=== PATIENT | female | born 1940 | race African-American/Black ===

== ENCOUNTER 2017-04-30 10:52 | Day surgery (SDC) | payer MEDICARE ==
[2017-04-30 12:13] LABS: Iron 12 ug/dL (50-170)
[2017-04-30 12:16] LABS: Hematocrit 22.5 % (36.0-47.0); Hypochromia MODERATE=16-30 cells (100X) (0-5/hpf); Mean Platelet Volume 6.9 fL (7.4-10.4); Microcytosis SLIGHT = 6-15 cells (100X) (0-5/hpf); Neutrophil 77 % (42-75); Polychromasia SLIGHT = 2-3 cells (100X) (0-2/hpf); Red Blood Cell (RBC) Count 2.97 mill/uL (4.20-5.40); White Blood Cell (WBC) Count 8.2 thou/uL (4.8-10.8)
[2017-04-30 18:07] VITALS: BP 160/77; TEMP 99
== END 2017-04-30 18:23 | disposition home or self-care (01) ==
LOC: ONC/OP 10:52
PROVIDERS: ATTEND Family Medicine
PROC: 30233N1 Transfusion of Nonautologous Red Blood Cells into Peripheral Vein, Percutaneous Approach (ICD-10-PCS; principal; 2017-04-30)
DX: D50.9 Iron deficiency anemia, unspecified (principal)
CPT/HCPCS: 36415; 36430; 82728; 83540; 83550; 85007; 85027; 85060; 86850; 86900; 86901; P9016

== ENCOUNTER 2019-03-07 11:56 | Outpatient (CLI) | payer MEDICARE, OTHER ==
--- NOTE | 2019-03-07 12:59 | MMO ---
Bilateral MAMMO Bilat Screen [facility]. CLINICAL HISTORY: Patient is 78 years old and is seen for screening. The patient has no family history of breast cancer. The patient has no personal history of cancer. VIEWS: The views performed were: bilateral craniocaudal with tomosynthesis and bilateral mediolateral oblique with tomosynthesis. FILMS COMPARED: The present examination has been compared to prior imaging studies performed at [facility] on 12/11/2008 and 09/16/2011. MAMMOGRAM FINDINGS: There are scattered fibroglandular densities. There are no suspicious masses, suspicious calcifications, or new areas of architectural distortion. IMPRESSION: THERE IS NO MAMMOGRAPHIC EVIDENCE OF MALIGNANCY. A ROUTINE FOLLOW-UP MAMMOGRAM IN 1 YEAR IS RECOMMENDED. THE RESULTS OF THIS EXAM WERE SENT TO THE PATIENT. ACR BI-RADS Category 1 - Negative MAMMOGRAPHY NOTE: 1. A negative mammogram report should not delay a biopsy if a dominant of clinically suspicious mass is present. 2. Approximately 10% to 15% of breast cancers are not detected by mammography. 3. Adenosis and dense breasts may obscure an underlying neoplasm. Reported by: KAT CALDERON MD Electonically Signed: [id number]
== END 2019-03-07 11:57 | disposition home or self-care (01) ==
LOC: BICMAMMO 11:56
PROVIDERS: ATTEND Student in an Organized Health Care Education/Training Program
DX: Z12.31 Encounter for screening mammogram for malignant neoplasm of breast (principal)
CPT/HCPCS: 77063; 77067

== ENCOUNTER 2019-03-17 11:45 | Emergency (ER) | payer MEDICARE, OTHER ==
[2019-03-17] MEDS ORDERED: Ketorolac Tromethamine 30 MG/ML VIAL ONE (12:43)
== END 2019-03-17 12:55 | disposition home or self-care (01) ==
LOC: ERS 11:45
DX: M10.9 Gout, unspecified (principal); E03.9 Hypothyroidism, unspecified; E78.5 Hyperlipidemia, unspecified; E11.9 Type 2 diabetes mellitus without complications; I10 Essential (primary) hypertension; M19.90 Unspecified osteoarthritis, unspecified site
CPT/HCPCS: 96372; 99283; J1885

== ENCOUNTER 2023-06-02 16:10 | Inpatient (IN) | payer MEDICARE, MEDICAID ==
[2023-06-02 17:18] LABS: #Basophils 0.1 thou/uL (0.0-0.2); #Eosinphils 0.1 thou/uL (0.0-0.7); #Monocytes 0.6 thou/uL (0.11-0.59); #Neutrophils 5.9 thou/uL (1.40-6.50); %Basophils 0.8 % (0.0-1.0); %Eosinophils 1.6 % (0.0-10.0); %Lymphocytes 15.6 % (21.0-51.0); %Monocytes 7.3 % (0.0-10.0); %Neutrophils 74.6 % (42.0-75.0); Hematocrit 35.9 % (36.0-47.0); Hemoglobin 11.5 g/dL (12.0-16.0); Mean Corpuscular Hemoglobin 32.1 pg (27.0-31.0); Mean Corpuscular Volume 100.3 fl (78.0-98.0); Mean Platelet Volume 9.2 fL (7.4-10.4); Platelet Count 311 10x3/uL (130-400); RBC Distribution Width 15.5 % (11.5-14.5); Red Blood Cell (RBC) Count 3.58 mill/uL (4.20-5.40)
[2023-06-02 17:31] LABS: INR-International Normal Ratio 1.1; PTT 31.8 sec (22.9-36.1); Prothrombin Time 14.4 sec (12.0-14.7)
[2023-06-02 17:42] LABS: ALT (SGPT) Less than 7 U/L (8-55); AST (SGOT) 13 U/L (5-34); Albumin 3.5 g/dL (3.4-4.8); Alkaline Phosphatase 88 U/L (40-110); Anion Gap 13 mmol/L (10-20); BUN (Urea Nitrogen) 16 mg/dL (9.8-20.1); Bilirubin, Total 0.4 mg/dL (0.2-1.2); Calc. Creatinine Clearance 0 mL/min (70-130); Calcium 8.6 mg/dL (7.8-10.44); Carbon Dioxide 22 mmol/L (23-31); Chloride 114 mmol/L (98-107); Estimated GFR 14; Globulin 3.4 g/dL (2.4-3.5); Glucose 135 mg/dL (83-110); Lipase 34 U/L (8-78); Potassium 3.9 mmol/L (3.5-5.1); Protein, Total 6.9 g/dL (5.8-8.1); Sodium 145 mmol/L (136-145)
[2023-06-02 17:48] LABS: Troponin I Less than 0.010 ng/mL (< 0.028)
[2023-06-02] MEDS ORDERED: Ondansetron PF 4 MG/2 ML Vial ONE (21:51)
[2023-06-03] MEDS ORDERED: Ondansetron PF 4 MG/2 ML Vial IVP PRN (00:36)
[2023-06-03] MEDS ORDERED: Ondansetron ODT 4 MG TAB PO PRN (00:36)
[2023-06-03 00:39] LABS: Troponin I Less than 0.010 ng/mL (< 0.028)
[2023-06-03 01:08] VITALS: BMI 27.6
[2023-06-03] MEDS ORDERED: Ziprasidone 20 MG VIAL IM SCH ×3 (02:00→23:45)
[2023-06-03] MEDS ORDERED: Sterile Water 10 ML ONE (02:01)
[2023-06-03] MEDS: Sterile Water 10 ML VIAL FS PRN ×2 (02:07→20:25)
[2023-06-03] MEDS ORDERED: Haloperidol Lactate 5 MG/ML VIAL SLOW IVP SCH (03:00)
[2023-06-03 03:50] LABS: #Monocytes 0.5 thou/uL (0.11-0.59); #Neutrophils 5.1 thou/uL (1.40-6.50); %Basophils 0.4 % (0.0-1.0); %Eosinophils 0.4 % (0.0-10.0); %Lymphocytes 20.3 % (21.0-51.0); %Neutrophils 71.8 % (42.0-75.0); Hematocrit 37.6 % (36.0-47.0); Hemoglobin 11.9 g/dL (12.0-16.0); Mean Corpuscular HGB CONC 31.6 g/dL (32.0-36.0); Mean Corpuscular Hemoglobin 31.7 pg (27.0-31.0); Mean Corpuscular Volume 100.3 fl (78.0-98.0); Mean Platelet Volume 9.2 fL (7.4-10.4); Platelet Count 299 10x3/uL (130-400); RBC Distribution Width 15.6 % (11.5-14.5); Red Blood Cell (RBC) Count 3.75 mill/uL (4.20-5.40); White Blood Cell (WBC) Count 7.1 10x3/uL (4.8-10.8)
[2023-06-03 04:39] LABS: Anion Gap 15 mmol/L (10-20); BUN (Urea Nitrogen) 14 mg/dL (9.8-20.1); Calc. Creatinine Clearance 17 mL/min (70-130); Calcium 9.2 mg/dL (7.8-10.44); Carbon Dioxide 21 mmol/L (23-31); Chloride 112 mmol/L (98-107); Estimated GFR 17; Glucose 110 mg/dL (83-110); Sodium 144 mmol/L (136-145)
[2023-06-03 04:44] LABS: Troponin I Less than 0.010 ng/mL (< 0.028)
[2023-06-03] MEDS ORDERED: Levothyroxine 150 MCG TAB PO SCH (06:00)
[2023-06-03] MEDS ORDERED: Levothyroxine Sodium 100 MCG TAB PO SCH (06:00)
[2023-06-03] MEDS: Amlodipine 10 MG TAB PO SCH ×2 (08:01→11:13)
[2023-06-03] MEDS: Aspirin 81 mg Enteric Coated Tablet PO SCH ×2 (08:01→11:23)
[2023-06-03] MEDS: Famotidine 20 MG TAB PO SCH ×2 (08:01→11:23)
[2023-06-03] MEDS: Carvedilol 6.25 MG TAB PO SCH ×4 (08:01→18:10)
[2023-06-03] MEDS: Rosuvastatin 10 MG TAB PO SCH ×2 (08:01→11:24)
[2023-06-03] MEDS: Furosemide 20 MG TAB PO SCH ×2 (08:01→11:23)
[2023-06-03] MEDS: Ferrous Sulfate 325 MG TAB PO SCH ×2 (08:01→11:13)
[2023-06-03 12:59] LABS: Acetaminophen Less than 10 mcg/mL (10.0-30.0); Alcohol Less than 10.0 mg/dL (Less than 10); Salicylate Less than 8.0 mg/dL (15.0-30.0)
[2023-06-03 16:48] LABS: Bilirubin Negative (Negative); Blood, Urine Negative (Negative); Clarity Clear (Clear); Glucose, Urine (Dipstick) Normal (Negative); Ketone, Urine Negative (Negative); Leukocyte Negative Leu/uL (Negative); Nitrite Negative (Negative); Protein, Urine (Dipstick) 10 mg/dL (Neg-Trace); RBC/HPF 0-3 HPF (0-3); Specific Gravity, Urine 1.008 (1.002-1.036); Squamous Epithelial 0-3 HPF (0-3); Urobilinogen Normal mg/dL (Less than 2); WBC/HPF 0-3 HPF (0-3)
[2023-06-03 16:59] LABS: Bacteria/HPF 1+ HPF (None Seen)
[2023-06-03 17:00] LABS: Amphetamine Not Detected (NotDetected); Barbiturates Screen Not Detected (NotDetected); Benzodiazepine Screen Not Detected (NotDetected); Cocaine Metabolite Screen Not Detected (NotDetected); Methadone Not Detected (NotDetected); Methamphetamine Not Detected (NotDetected); Opiate Screen Not Detected (NotDetected); Oxycodone Screen Not Detected (NotDetected); Phencyclidine (PCP) Not Detected (NotDetected); THC/Cannabinoid Screen Not Detected (NotDetected); Tricyclic Screen Not Detected (NotDetected)
[2023-06-03] MEDS: Latanoprost 0.005% Ophth Soln 2.5 ml Bottle EA EYE SCH (20:31)
[2023-06-03] MEDS: Lisinopril 20 MG TAB PO SCH (20:32)
[2023-06-04] MEDS: Sterile Water 10 ML VIAL FS PRN (01:17)
[2023-06-04] MEDS: Levothyroxine Sodium 100 MCG TAB PO SCH (05:27)
[2023-06-04] MEDS: Carvedilol 6.25 MG TAB PO SCH ×2 (09:37→18:10)
[2023-06-04] MEDS: Furosemide 20 MG TAB PO SCH (09:42)
[2023-06-04] MEDS: Amlodipine 10 MG TAB PO SCH (09:42)
[2023-06-04] MEDS: Aspirin 81 mg Enteric Coated Tablet PO SCH (09:44)
[2023-06-04] MEDS: Rosuvastatin 10 MG TAB PO SCH (09:45)
[2023-06-04] MEDS: Famotidine 20 MG TAB PO SCH (09:45)
[2023-06-04 10:45] LABS: #Basophils 0.1 thou/uL (0.0-0.2); #Eosinphils 0.1 thou/uL (0.0-0.7); #Monocytes 0.5 thou/uL (0.11-0.59); #Neutrophils 3.8 thou/uL (1.40-6.50); %Basophils 0.8 % (0.0-1.0); %Eosinophils 2.3 % (0.0-10.0); %Lymphocytes 26.2 % (21.0-51.0); %Monocytes 8.1 % (0.0-10.0); %Neutrophils 62.4 % (42.0-75.0); Hematocrit 38.9 % (36.0-47.0); Hemoglobin 12.8 g/dL (12.0-16.0); Mean Corpuscular HGB CONC 32.9 g/dL (32.0-36.0); Mean Corpuscular Hemoglobin 32.2 pg (27.0-31.0); Mean Corpuscular Volume 97.7 fl (78.0-98.0); Mean Platelet Volume 9.1 fL (7.4-10.4); Platelet Count 366 10x3/uL (130-400); Red Blood Cell (RBC) Count 3.98 mill/uL (4.20-5.40)
[2023-06-04] MEDS ORDERED: QUEtiapine 25 MG TAB PO SCH (11:00)
[2023-06-04 11:12] LABS: ALT (SGPT) Less than 7 U/L (8-55); AST (SGOT) 18 U/L (5-34); Albumin 3.6 g/dL (3.4-4.8); Alkaline Phosphatase 94 U/L (40-110); Anion Gap 16 mmol/L (10-20); BUN (Urea Nitrogen) 12 mg/dL (9.8-20.1); Bilirubin, Total 0.5 mg/dL (0.2-1.2); Calc. Creatinine Clearance 18 mL/min (70-130); Calcium 9.4 mg/dL (7.8-10.44); Carbon Dioxide 22 mmol/L (23-31); Chloride 109 mmol/L (98-107); Estimated GFR 18; Globulin 3.9 g/dL (2.4-3.5); Glucose 103 mg/dL (83-110); Potassium 3.9 mmol/L (3.5-5.1); Protein, Total 7.5 g/dL (5.8-8.1); Sodium 143 mmol/L (136-145)
[2023-06-04] MEDS ORDERED: Ziprasidone 20 MG VIAL IM SCH ×2 (20:00→22:15)
[2023-06-04] MEDS: Lisinopril 20 MG TAB PO SCH (21:32)
[2023-06-04] MEDS: Latanoprost 0.005% Ophth Soln 2.5 ml Bottle EA EYE SCH (21:34)
[2023-06-04] MEDS: QUEtiapine 25 MG TAB PO SCH (21:34)
[2023-06-05] MEDS: Levothyroxine Sodium 100 MCG TAB PO SCH (05:33)
[2023-06-05] MEDS: Furosemide 20 MG TAB PO SCH (11:26)
[2023-06-05] MEDS: Amlodipine 10 MG TAB PO SCH (11:26)
[2023-06-05] MEDS: Aspirin 81 mg Enteric Coated Tablet PO SCH (11:26)
[2023-06-05] MEDS: Carvedilol 6.25 MG TAB PO SCH ×2 (11:26→17:56)
[2023-06-05] MEDS: Ferrous Sulfate 325 MG TAB PO SCH (11:27)
[2023-06-05] MEDS: Famotidine 20 MG TAB PO SCH (11:27)
[2023-06-05] MEDS: QUEtiapine 25 MG TAB PO SCH ×2 (11:27→11:53)
[2023-06-05] MEDS: Rosuvastatin 10 MG TAB PO SCH (11:27)
[2023-06-05] MEDS ORDERED: QUEtiapine 25 MG TAB PO SCH ×3 (14:45→18:00)
[2023-06-05] MEDS: Latanoprost 0.005% Ophth Soln 2.5 ml Bottle EA EYE SCH (21:00)
[2023-06-05] MEDS: Lisinopril 20 MG TAB PO SCH (21:34)
[2023-06-06 04:54] LABS: #Basophils 0.1 thou/uL (0.0-0.2); #Eosinphils 0.2 thou/uL (0.0-0.7); #Monocytes 0.6 thou/uL (0.11-0.59); #Neutrophils 2.9 thou/uL (1.40-6.50); %Basophils 0.9 % (0.0-1.0); %Eosinophils 2.6 % (0.0-10.0); %Lymphocytes 36.2 % (21.0-51.0); %Monocytes 10.3 % (0.0-10.0); %Neutrophils 49.8 % (42.0-75.0); Hematocrit 40.9 % (36.0-47.0); Hemoglobin 13.2 g/dL (12.0-16.0); Mean Corpuscular HGB CONC 32.3 g/dL (32.0-36.0); Mean Corpuscular Hemoglobin 31.4 pg (27.0-31.0); Mean Corpuscular Volume 97.4 fl (78.0-98.0); Mean Platelet Volume 10.1 fL (7.4-10.4); Platelet Count 289 10x3/uL (130-400); RBC Distribution Width 15.2 % (11.5-14.5); White Blood Cell (WBC) Count 5.7 10x3/uL (4.8-10.8)
[2023-06-06] MEDS: Levothyroxine Sodium 100 MCG TAB PO SCH (06:03)
[2023-06-06 09:45] LABS: ALT (SGPT) 7 U/L (8-55); AST (SGOT) 22 U/L (5-34); Albumin 3.3 g/dL (3.4-4.8); Alkaline Phosphatase 88 U/L (40-110); Anion Gap 17 mmol/L (10-20); BUN (Urea Nitrogen) 21 mg/dL (9.8-20.1); Bilirubin, Total 0.5 mg/dL (0.2-1.2); Calc. Creatinine Clearance 13 mL/min (70-130); Carbon Dioxide 20 mmol/L (23-31); Chloride 110 mmol/L (98-107); Estimated GFR 13; Globulin 3.6 g/dL (2.4-3.5); Glucose 82 mg/dL (83-110); Protein, Total 6.9 g/dL (5.8-8.1); Sodium 143 mmol/L (136-145)
[2023-06-06] MEDS: Amlodipine 10 MG TAB PO SCH (09:57)
[2023-06-06] MEDS: Rosuvastatin 10 MG TAB PO SCH (09:57)
[2023-06-06] MEDS: Aspirin 81 mg Enteric Coated Tablet PO SCH (09:57)
[2023-06-06] MEDS: Famotidine 20 MG TAB PO SCH (09:58)
[2023-06-06] MEDS: Carvedilol 6.25 MG TAB PO SCH ×2 (09:58→17:46)
[2023-06-06] MEDS: QUEtiapine 25 MG TAB PO SCH ×3 (09:58→17:45)
[2023-06-06] MEDS: Furosemide 20 MG TAB PO SCH (09:58)
[2023-06-06] MEDS ORDERED: Lactated Ringer's 1,000 ML IV SCH (11:30)
[2023-06-06] MEDS ORDERED: QUEtiapine 25 MG TAB PO SCH ×2 (18:00→21:00)
[2023-06-06] MEDS: Acetaminophen 325 MG TAB PO PRN (21:23)
[2023-06-06] MEDS: Latanoprost 0.005% Ophth Soln 2.5 ml Bottle EA EYE SCH (21:23)
[2023-06-06] MEDS: Lisinopril 20 MG TAB PO SCH (21:23)
[2023-06-07] MEDS ORDERED: Ziprasidone 20 MG VIAL IM SCH (00:30)
[2023-06-07] MEDS: Levothyroxine Sodium 100 MCG TAB PO SCH (05:21)
[2023-06-07] MEDS: Famotidine 20 MG TAB PO SCH ×2 (08:51→13:41)
[2023-06-07] MEDS: Carvedilol 6.25 MG TAB PO SCH ×4 (08:51→18:13)
[2023-06-07] MEDS: QUEtiapine 25 MG TAB PO SCH ×2 (08:51→12:35)
[2023-06-07] MEDS: Amlodipine 10 MG TAB PO SCH ×2 (08:51→13:41)
[2023-06-07] MEDS: Ferrous Sulfate 325 MG TAB PO SCH ×2 (08:51→12:59)
[2023-06-07] MEDS: Aspirin 81 mg Enteric Coated Tablet PO SCH ×2 (08:51→12:59)
[2023-06-07] MEDS: Rosuvastatin 10 MG TAB PO SCH ×2 (08:52→13:41)
[2023-06-07] MEDS: Furosemide 20 MG TAB PO SCH (08:57)
[2023-06-07] MEDS ORDERED: OLANZapine ODT 5 MG TAB SL SCH (11:30)
[2023-06-07] MEDS: Acetaminophen 325 MG TAB PO PRN (20:41)
[2023-06-07] MEDS: Latanoprost 0.005% Ophth Soln 2.5 ml Bottle EA EYE SCH ×2 (20:41→21:02)
[2023-06-07] MEDS: Lisinopril 20 MG TAB PO SCH ×2 (20:41→21:03)
[2023-06-08] MEDS: Acetaminophen 325 MG TAB PO PRN (03:34)
[2023-06-08] MEDS: Levothyroxine Sodium 100 MCG TAB PO SCH (05:34)
[2023-06-08 06:10] LABS: #Basophils 0.1 thou/uL (0.0-0.2); #Eosinphils 0.3 thou/uL (0.0-0.7); #Monocytes 0.8 thou/uL (0.11-0.59); #Neutrophils 4.8 thou/uL (1.40-6.50); %Basophils 0.9 % (0.0-1.0); %Eosinophils 3.4 % (0.0-10.0); %Lymphocytes 20.4 % (21.0-51.0); %Monocytes 10.8 % (0.0-10.0); %Neutrophils 64.2 % (42.0-75.0); Hematocrit 38.9 % (36.0-47.0); Hemoglobin 12.7 g/dL (12.0-16.0); Mean Corpuscular HGB CONC 32.6 g/dL (32.0-36.0); Mean Corpuscular Hemoglobin 31.8 pg (27.0-31.0); Mean Corpuscular Volume 97.5 fl (78.0-98.0); Mean Platelet Volume 9.5 fL (7.4-10.4); Platelet Count 375 10x3/uL (130-400); RBC Distribution Width 15.1 % (11.5-14.5); Red Blood Cell (RBC) Count 3.99 mill/uL (4.20-5.40); White Blood Cell (WBC) Count 7.4 10x3/uL (4.8-10.8)
[2023-06-08 06:37] LABS: ALT (SGPT) 8 U/L (8-55); AST (SGOT) 19 U/L (5-34); Albumin 3.3 g/dL (3.4-4.8); Alkaline Phosphatase 89 U/L (40-110); Anion Gap 17 mmol/L (10-20); BUN (Urea Nitrogen) 28 mg/dL (9.8-20.1); Bilirubin, Total 0.6 mg/dL (0.2-1.2); Calc. Creatinine Clearance 13 mL/min (70-130); Calcium 9.1 mg/dL (7.8-10.44); Carbon Dioxide 22 mmol/L (23-31); Chloride 109 mmol/L (98-107); Estimated GFR 12; Globulin 3.7 g/dL (2.4-3.5); Glucose 74 mg/dL (83-110); Sodium 144 mmol/L (136-145)
[2023-06-08] MEDS ORDERED: Lactated Ringer's 1,000 ML IV SCH (08:30)
[2023-06-08] MEDS: Rosuvastatin 10 MG TAB PO SCH (08:50)
[2023-06-08] MEDS: Amlodipine 10 MG TAB PO SCH (08:50)
[2023-06-08] MEDS: Carvedilol 6.25 MG TAB PO SCH ×2 (08:50→16:44)
[2023-06-08] MEDS: Famotidine 20 MG TAB PO SCH (08:50)
[2023-06-08] MEDS: OLANZapine ODT 5 MG TAB SL SCH ×2 (08:50→16:45)
[2023-06-08] MEDS: Aspirin 81 mg Enteric Coated Tablet PO SCH (08:50)
[2023-06-08] MEDS: Sodium Chloride 0.9% 1,000 ML IV SCH (11:35)
[2023-06-08] MEDS ORDERED: OLANZapine ODT 5 MG TAB SL SCH (14:00)
[2023-06-08 14:14] LABS: Methylmalonic Acid 136 nmol/L (0-378)
[2023-06-08] MEDS: Latanoprost 0.005% Ophth Soln 2.5 ml Bottle EA EYE SCH (20:46)
[2023-06-09] MEDS: Sodium Chloride 0.9% 1,000 ML IV SCH ×3 (03:28→17:17)
[2023-06-09] MEDS: Levothyroxine Sodium 100 MCG TAB PO SCH (05:44)
[2023-06-09 07:16] LABS: Anion Gap 18 mmol/L (10-20); BUN (Urea Nitrogen) 28 mg/dL (9.8-20.1); Calc. Creatinine Clearance 15 mL/min (70-130); Calcium 8.8 mg/dL (7.8-10.44); Carbon Dioxide 18 mmol/L (23-31); Chloride 110 mmol/L (98-107); Estimated GFR 16; Glucose 92 mg/dL (83-110); Potassium 3.9 mmol/L (3.5-5.1); Sodium 142 mmol/L (136-145)
[2023-06-09] MEDS: Amlodipine 10 MG TAB PO SCH (08:54)
[2023-06-09] MEDS: Aspirin 81 mg Enteric Coated Tablet PO SCH (08:54)
[2023-06-09] MEDS: Carvedilol 6.25 MG TAB PO SCH ×2 (08:54→17:16)
[2023-06-09] MEDS: Ferrous Sulfate 325 MG TAB PO SCH (08:54)
[2023-06-09] MEDS: Famotidine 20 MG TAB PO SCH (08:55)
[2023-06-09] MEDS: OLANZapine ODT 5 MG TAB SL SCH ×2 (08:55→17:16)
[2023-06-09] MEDS: Rosuvastatin 10 MG TAB PO SCH (08:55)
[2023-06-09] MEDS: Latanoprost 0.005% Ophth Soln 2.5 ml Bottle EA EYE SCH (20:32)
[2023-06-10] MEDS: Sodium Chloride 0.9% 1,000 ML IV SCH (04:10)
[2023-06-10] MEDS: Levothyroxine Sodium 100 MCG TAB PO SCH (05:43)
[2023-06-10 06:20] LABS: Anion Gap 18 mmol/L (10-20); BUN (Urea Nitrogen) 23 mg/dL (9.8-20.1); Calc. Creatinine Clearance 17 mL/min (70-130); Calcium 8.7 mg/dL (7.8-10.44); Carbon Dioxide 18 mmol/L (23-31); Chloride 113 mmol/L (98-107); Estimated GFR 18; Glucose 68 mg/dL (83-110); Potassium 3.7 mmol/L (3.5-5.1); Sodium 145 mmol/L (136-145)
[2023-06-10] MEDS: Aspirin 81 mg Enteric Coated Tablet PO SCH (10:38)
[2023-06-10] MEDS: Famotidine 20 MG TAB PO SCH (10:39)
[2023-06-10] MEDS: OLANZapine ODT 5 MG TAB SL SCH ×2 (10:39→16:05)
[2023-06-10] MEDS: Rosuvastatin 10 MG TAB PO SCH (10:39)
[2023-06-10] MEDS: Amlodipine 10 MG TAB PO SCH (10:39)
[2023-06-10] MEDS: Carvedilol 6.25 MG TAB PO SCH ×2 (10:39→16:05)
[2023-06-10] MEDS: Latanoprost 0.005% Ophth Soln 2.5 ml Bottle EA EYE SCH (20:19)
[2023-06-11] MEDS: Levothyroxine Sodium 100 MCG TAB PO SCH (05:32)
[2023-06-11 07:04] LABS: Anion Gap 16 mmol/L (10-20); BUN (Urea Nitrogen) 22 mg/dL (9.8-20.1); Calc. Creatinine Clearance 17 mL/min (70-130); Calcium 8.9 mg/dL (7.8-10.44); Carbon Dioxide 17 mmol/L (23-31); Chloride 113 mmol/L (98-107); Estimated GFR 18; Glucose 103 mg/dL (83-110); Potassium 3.9 mmol/L (3.5-5.1); Sodium 142 mmol/L (136-145)
[2023-06-11] MEDS: Amlodipine 10 MG TAB PO SCH ×2 (07:27→10:15)
[2023-06-11] MEDS: Ferrous Sulfate 325 MG TAB PO SCH ×2 (07:27→10:16)
[2023-06-11] MEDS: Aspirin 81 mg Enteric Coated Tablet PO SCH ×2 (07:27→10:15)
[2023-06-11] MEDS: Carvedilol 6.25 MG TAB PO SCH ×3 (07:27→18:07)
[2023-06-11] MEDS: Famotidine 20 MG TAB PO SCH ×2 (07:28→10:15)
[2023-06-11] MEDS: OLANZapine ODT 5 MG TAB SL SCH ×3 (07:28→14:46)
[2023-06-11] MEDS: Rosuvastatin 10 MG TAB PO SCH ×2 (07:28→10:16)
[2023-06-12] MEDS: Latanoprost 0.005% Ophth Soln 2.5 ml Bottle EA EYE SCH ×2 (00:21→20:12)
[2023-06-12] MEDS: Levothyroxine Sodium 100 MCG TAB PO SCH (05:33)
[2023-06-12 07:55] LABS: Anion Gap 13 mmol/L (10-20); BUN (Urea Nitrogen) 23 mg/dL (9.8-20.1); Calc. Creatinine Clearance 17 mL/min (70-130); Calcium 8.6 mg/dL (7.8-10.44); Carbon Dioxide 21 mmol/L (23-31); Chloride 113 mmol/L (98-107); Estimated GFR 18; Glucose 84 mg/dL (83-110); Potassium 3.6 mmol/L (3.5-5.1); Sodium 143 mmol/L (136-145)
[2023-06-12] MEDS: Amlodipine 10 MG TAB PO SCH (08:21)
[2023-06-12] MEDS: Carvedilol 6.25 MG TAB PO SCH ×2 (08:21→15:36)
[2023-06-12] MEDS: Aspirin 81 mg Enteric Coated Tablet PO SCH (08:22)
[2023-06-12] MEDS: Famotidine 20 MG TAB PO SCH (08:22)
[2023-06-12] MEDS: OLANZapine ODT 5 MG TAB SL SCH ×2 (08:22→15:37)
[2023-06-12] MEDS: Rosuvastatin 10 MG TAB PO SCH (08:23)
[2023-06-12] MEDS: Acetaminophen 325 MG TAB PO PRN (21:24)
[2023-06-13] MEDS: Levothyroxine Sodium 100 MCG TAB PO SCH (05:58)
[2023-06-13] MEDS: Famotidine 20 MG TAB PO SCH (08:18)
[2023-06-13] MEDS: Aspirin 81 mg Enteric Coated Tablet PO SCH (08:18)
[2023-06-13] MEDS: Rosuvastatin 10 MG TAB PO SCH (08:18)
[2023-06-13] MEDS: Amlodipine 10 MG TAB PO SCH (08:18)
[2023-06-13] MEDS: OLANZapine ODT 5 MG TAB SL SCH ×2 (08:18→16:32)
[2023-06-13] MEDS: Carvedilol 6.25 MG TAB PO SCH ×2 (08:19→16:32)
[2023-06-13] MEDS: Ferrous Sulfate 325 MG TAB PO SCH (08:19)
[2023-06-13] MEDS: Latanoprost 0.005% Ophth Soln 2.5 ml Bottle EA EYE SCH (20:39)
[2023-06-14] MEDS: Levothyroxine Sodium 100 MCG TAB PO SCH (05:47)
[2023-06-14] MEDS: OLANZapine ODT 5 MG TAB SL SCH ×2 (08:40→16:28)
[2023-06-14] MEDS: Rosuvastatin 10 MG TAB PO SCH (08:41)
[2023-06-14] MEDS: Famotidine 20 MG TAB PO SCH (08:41)
[2023-06-14] MEDS: Carvedilol 6.25 MG TAB PO SCH ×2 (08:41→16:28)
[2023-06-14] MEDS: Amlodipine 10 MG TAB PO SCH (08:41)
[2023-06-14] MEDS: Aspirin 81 mg Enteric Coated Tablet PO SCH (08:41)
[2023-06-14] MEDS: Latanoprost 0.005% Ophth Soln 2.5 ml Bottle EA EYE SCH (21:06)
[2023-06-15] MEDS: Levothyroxine Sodium 100 MCG TAB PO SCH (05:55)
[2023-06-15] MEDS: Carvedilol 6.25 MG TAB PO SCH ×2 (08:13→16:58)
[2023-06-15] MEDS: Aspirin 81 mg Enteric Coated Tablet PO SCH (08:13)
[2023-06-15] MEDS: OLANZapine ODT 5 MG TAB SL SCH ×2 (08:14→16:25)
[2023-06-15] MEDS: Rosuvastatin 10 MG TAB PO SCH (08:14)
[2023-06-15] MEDS: Ferrous Sulfate 325 MG TAB PO SCH (08:14)
[2023-06-15] MEDS: Amlodipine 10 MG TAB PO SCH (08:14)
[2023-06-15] MEDS: Famotidine 20 MG TAB PO SCH (08:14)
[2023-06-15] MEDS: Latanoprost 0.005% Ophth Soln 2.5 ml Bottle EA EYE SCH (20:44)
[2023-06-16] MEDS: Levothyroxine Sodium 100 MCG TAB PO SCH (05:41)
[2023-06-16] MEDS: Carvedilol 6.25 MG TAB PO SCH ×2 (08:37→17:25)
[2023-06-16] MEDS: OLANZapine ODT 5 MG TAB SL SCH ×2 (08:37→17:25)
[2023-06-16] MEDS: Rosuvastatin 10 MG TAB PO SCH (08:38)
[2023-06-16] MEDS: Amlodipine 10 MG TAB PO SCH (08:38)
[2023-06-16] MEDS: Aspirin 81 mg Enteric Coated Tablet PO SCH (08:39)
[2023-06-16 17:17] LABS: Anion Gap 16 mmol/L (10-20); BUN (Urea Nitrogen) 30 mg/dL (9.8-20.1); Calc. Creatinine Clearance 17 mL/min (70-130); Calcium 9.2 mg/dL (7.8-10.44); Carbon Dioxide 17 mmol/L (23-31); Chloride 112 mmol/L (98-107); Estimated GFR 18; Glucose 106 mg/dL (83-110); Potassium 4.1 mmol/L (3.5-5.1); Sodium 141 mmol/L (136-145)
[2023-06-16] MEDS: Latanoprost 0.005% Ophth Soln 2.5 ml Bottle EA EYE SCH (20:38)
[2023-06-17] MEDS: Levothyroxine Sodium 100 MCG TAB PO SCH ×2 (06:12→06:19)
[2023-06-17] MEDS: Carvedilol 6.25 MG TAB PO SCH ×3 (08:08→17:37)
[2023-06-17] MEDS: Ferrous Sulfate 325 MG TAB PO SCH (08:08)
[2023-06-17] MEDS: Amlodipine 10 MG TAB PO SCH (08:08)
[2023-06-17] MEDS: Rosuvastatin 10 MG TAB PO SCH (08:08)
[2023-06-17] MEDS: Aspirin 81 mg Enteric Coated Tablet PO SCH (08:08)
[2023-06-17] MEDS: OLANZapine ODT 5 MG TAB SL SCH ×3 (08:08→17:37)
[2023-06-17] MEDS: Latanoprost 0.005% Ophth Soln 2.5 ml Bottle EA EYE SCH (21:13)
[2023-06-18] MEDS: Levothyroxine Sodium 100 MCG TAB PO SCH (05:39)
[2023-06-18] MEDS: Acetaminophen 325 MG TAB PO PRN (05:42)
[2023-06-18] MEDS: Amlodipine 10 MG TAB PO SCH (08:10)
[2023-06-18] MEDS: Aspirin 81 mg Enteric Coated Tablet PO SCH (08:11)
[2023-06-18] MEDS: Carvedilol 6.25 MG TAB PO SCH ×2 (08:11→17:12)
[2023-06-18] MEDS: OLANZapine ODT 5 MG TAB SL SCH ×2 (08:11→17:12)
[2023-06-18] MEDS: Rosuvastatin 10 MG TAB PO SCH (08:11)
[2023-06-18] MEDS: Latanoprost 0.005% Ophth Soln 2.5 ml Bottle EA EYE SCH (22:21)
[2023-06-19] MEDS: Carvedilol 6.25 MG TAB PO SCH ×2 (09:01→16:47)
[2023-06-19] MEDS: OLANZapine ODT 5 MG TAB SL SCH ×2 (09:01→15:34)
[2023-06-19] MEDS: Ferrous Sulfate 325 MG TAB PO SCH (09:01)
[2023-06-19] MEDS: Aspirin 81 mg Enteric Coated Tablet PO SCH (09:01)
[2023-06-19] MEDS: Rosuvastatin 10 MG TAB PO SCH (09:01)
[2023-06-19] MEDS: Amlodipine 10 MG TAB PO SCH (09:01)
[2023-06-19] MEDS: Levothyroxine Sodium 100 MCG TAB PO SCH (10:16)
[2023-06-19] MEDS: Latanoprost 0.005% Ophth Soln 2.5 ml Bottle EA EYE SCH (21:38)
[2023-06-20] MEDS: Levothyroxine Sodium 100 MCG TAB PO SCH (06:08)
[2023-06-20] MEDS: Aspirin 81 mg Enteric Coated Tablet PO SCH (08:14)
[2023-06-20] MEDS: OLANZapine ODT 5 MG TAB SL SCH ×2 (08:15→16:05)
[2023-06-20] MEDS: Amlodipine 10 MG TAB PO SCH (08:15)
[2023-06-20] MEDS: Carvedilol 6.25 MG TAB PO SCH ×2 (08:15→16:05)
[2023-06-20] MEDS: Rosuvastatin 10 MG TAB PO SCH (08:15)
[2023-06-20] MEDS: Latanoprost 0.005% Ophth Soln 2.5 ml Bottle EA EYE SCH (20:19)
[2023-06-21] MEDS: Levothyroxine Sodium 100 MCG TAB PO SCH (05:24)
[2023-06-21] MEDS: Carvedilol 6.25 MG TAB PO SCH ×2 (08:43→16:53)
[2023-06-21] MEDS: Amlodipine 10 MG TAB PO SCH (08:43)
[2023-06-21] MEDS: Rosuvastatin 10 MG TAB PO SCH ×2 (08:48→09:55)
[2023-06-21] MEDS: OLANZapine ODT 5 MG TAB SL SCH ×3 (08:48→15:28)
[2023-06-21] MEDS: Aspirin 81 mg Enteric Coated Tablet PO SCH ×2 (08:48→09:54)
[2023-06-21] MEDS: Ferrous Sulfate 325 MG TAB PO SCH (08:50)
[2023-06-21] MEDS: Polyethylene Glycol 3350 17 GM Packet PO SCH ×2 (08:51→09:55)
[2023-06-21] MEDS: Acetaminophen 325 MG TAB PO PRN (16:53)
[2023-06-21] MEDS: Latanoprost 0.005% Ophth Soln 2.5 ml Bottle EA EYE SCH (20:56)
[2023-06-22] MEDS: Levothyroxine Sodium 100 MCG TAB PO SCH (05:38)
[2023-06-22] MEDS: OLANZapine ODT 5 MG TAB SL SCH ×2 (08:41→16:23)
[2023-06-22] MEDS: Acetaminophen 325 MG TAB PO PRN ×2 (08:47→18:25)
[2023-06-22] MEDS: Carvedilol 6.25 MG TAB PO SCH ×2 (08:48→16:21)
[2023-06-22] MEDS: Aspirin 81 mg Enteric Coated Tablet PO SCH (08:49)
[2023-06-22] MEDS: Amlodipine 10 MG TAB PO SCH (08:49)
[2023-06-22] MEDS: Rosuvastatin 10 MG TAB PO SCH (08:50)
[2023-06-22] MEDS: Polyethylene Glycol 3350 17 GM Packet PO SCH (08:50)
[2023-06-22] MEDS: Latanoprost 0.005% Ophth Soln 2.5 ml Bottle EA EYE SCH (20:06)
[2023-06-23] MEDS: Levothyroxine Sodium 100 MCG TAB PO SCH (05:21)
[2023-06-23] MEDS: Rosuvastatin 10 MG TAB PO SCH (08:04)
[2023-06-23] MEDS: Amlodipine 10 MG TAB PO SCH (08:04)
[2023-06-23] MEDS: OLANZapine ODT 5 MG TAB SL SCH ×2 (08:05→15:57)
[2023-06-23] MEDS: Polyethylene Glycol 3350 17 GM Packet PO SCH (08:05)
[2023-06-23] MEDS: Aspirin 81 mg Enteric Coated Tablet PO SCH (08:05)
[2023-06-23] MEDS: Ferrous Sulfate 325 MG TAB PO SCH (08:05)
[2023-06-23] MEDS: Carvedilol 6.25 MG TAB PO SCH ×2 (08:11→15:57)
[2023-06-23] MEDS: Latanoprost 0.005% Ophth Soln 2.5 ml Bottle EA EYE SCH (21:02)
[2023-06-23] MEDS: Acetaminophen 325 MG TAB PO PRN (22:39)
[2023-06-24] MEDS: Levothyroxine Sodium 100 MCG TAB PO SCH (06:12)
[2023-06-24] MEDS: OLANZapine ODT 5 MG TAB SL SCH ×2 (09:29→17:58)
[2023-06-24] MEDS: Carvedilol 6.25 MG TAB PO SCH ×2 (09:31→17:58)
[2023-06-24] MEDS: Rosuvastatin 10 MG TAB PO SCH (09:32)
[2023-06-24] MEDS: Aspirin 81 mg Enteric Coated Tablet PO SCH (09:32)
[2023-06-24] MEDS: Amlodipine 10 MG TAB PO SCH (09:32)
[2023-06-24] MEDS: Polyethylene Glycol 3350 17 GM Packet PO SCH (09:33)
[2023-06-24 16:00] VITALS: TEMP 97.3
[2023-06-24 18:24] VITALS: BP 127/69
== END 2023-06-24 19:20 | DRG 315 ==
LOC: ERS 16:10 → 2SW 23:26 → OBSVTOIN 06-03 16:23 → 2NO 06-04 15:49 → T4-B 06-06 12:08
PROVIDERS: ADMIT Family Medicine; ATTEND Family Medicine
DX: I31.39 Other pericardial effusion (noninflammatory) (principal); E87.20 Acidosis, unspecified; K86.2 Cyst of pancreas; N17.9 Acute kidney failure, unspecified; N18.4 Chronic kidney disease, stage 4 (severe); F03.918 Unspecified dementia, unspecified severity, with other behavioral disturbance; F05 Delirium due to known physiological condition; R55 Syncope and collapse; R45.1 Restlessness and agitation; E03.9 Hypothyroidism, unspecified; I12.9 Hypertensive chronic kidney disease with stage 1 through stage 4 chronic kidney disease, or unspecified chronic kidney disease; E11.22 Type 2 diabetes mellitus with diabetic chronic kidney disease; E78.5 Hyperlipidemia, unspecified; Z79.899 Other long term (current) drug therapy; Z79.82 Long term (current) use of aspirin; M19.90 Unspecified osteoarthritis, unspecified site; Z98.41 Cataract extraction status, right eye; Z98.42 Cataract extraction status, left eye; Z98.890 Other specified postprocedural states; Z82.49 Family history of ischemic heart disease and other diseases of the circulatory system; M10.9 Gout, unspecified; Z90.710 Acquired absence of both cervix and uterus; F17.220 Nicotine dependence, chewing tobacco, uncomplicated; R33.9 Retention of urine, unspecified; E88.09 Other disorders of plasma-protein metabolism, not elsewhere classified; D63.1 Anemia in chronic kidney disease
CPT/HCPCS: 36415; 70450; 71045; 74176; 80048; 80053; 80143; 80179; 80306; 80307; 81001; 82607; 83690; 83735; 83921; 84439; 84443; 84484; 85025; 85610; 85730; 93005; 93306; 94760; 96374; J2405; J3486; J7050; J7120; Q0162